=== PATIENT | male | born 1940 | race Caucasian/White ===

== ENCOUNTER 2016-08-26 15:07 | Inpatient (IN) | payer MEDICARE ==
[~2016-08-26] VITALS: Ht 185.4 cm; Wt 116.8 kg
[~2016-08-26 15:07] MED LIST: ALLO100T PO; AMLO5TAB2 PO; ASPI1TAB69 PO; COEN200T PO; FLUT1SPR5 EACH NARE; FURO40TA PO; GLIM1TAB PO; LOSA50TA PO; METF1000 PO; METO100T PO; PANT40TA3 PO; ROSU10 PO; VIAG50TA PO; VITA2000 PO; WARF-21 PO; WARF-23 PO
[2016-08-26 15:11] VITALS: BP 165/74; PULSE 84; RESP 16; TEMP 97.8; O2SAT 98
[2016-08-26 15:43] VITALS: BP 159/87; PULSE 67; RESP 16; O2SAT 97
[2016-08-26] MEDS ORDERED: SODIUM CHLORIDE 0.9% FLUSH 10 ML FLUSH IVF PRN (15:45)
--- NOTE | 2016-08-26 16:19 | RADRPT ---
EXAM DATE/TIME: 08/26/2016 15:55 [facility] COMPARISON: CHEST SINGLE AP, March 04, 2016, 22:41. INDICATIONS : Short of breath. MEDICAL HISTORY : Cardiovascular disease. SURGICAL HISTORY : CABG. ENCOUNTER: Initial ACUITY: 1 day PAIN SCORE: 7/10 LOCATION: Bilateral chest FINDINGS: Median sternotomy wires are noted status post cardiac surgery. The heart is enlarged. Mild pulmonar y vascular congestion is noted bilaterally. CONCLUSION: 1. Mild pulmonary vascular congestion bilaterally. 2. Cardiomegaly. Luis Whyte MD on August 26, 2016 at 16:13 Board Certified Radiologist. This report was verified electronically.
[2016-08-26 16:29] LABS: AUTOMATED NEUTROPHIL # 4.9 TH/MM3 (1.8-7.7); BASOPHIL # 0.1 TH/MM3 (0-0.2); BASOPHIL % 1.1 % (0.0-2.0); EOSINOPHIL # 0.5 TH/MM3 (0-0.4); EOSINOPHIL % 6.2 % (0.0-4.0); HEMATOCRIT 32.5 % (39.0-51.0); HEMO FLAGS AUTO DIFF; LYMPHOCYTE # 1.2 TH/MM3 (1.0-4.8); MEAN CELL VOLUME 78.2 FL (80.0-100.0); MEAN CORPUSCULAR HEMOGLOBIN 24.2 PG (27.0-34.0); MONO % 9.3 % (0.0-8.0); NEUT % 66.4 % (16.0-70.0); PLATELET COUNT 220 TH/MM3 (150-450); RED BLOOD COUNT 4.15 MIL/MM3 (4.50-5.90); RED CELL DISTRIBUTION WIDTH 17.2 % (11.6-17.2); WHITE BLOOD COUNT 7.3 TH/MM3 (4.0-11.0)
[2016-08-26 16:46] LABS: APTT (PATIENT) 36.6 SEC (24.3-30.1); INTERNATIONAL NORMALIZED RATIO 2.2 RATIO; PROTHROMBIN TIME - PATIENT 24.9 SEC (9.8-11.6)
[2016-08-26 16:58] LABS: ANION GAP 8 MEQ/L (5-15); BICARBONATE 26.4 MEQ/L (21.0-32.0); BLOOD UREA NITROGEN 29 MG/DL (7-18); CHLORIDE 105 MEQ/L (98-107); CREATINE KINASE 137 U/L (39-308); GLOMERULAR FILTRATION RATE 47 ML/MIN (>89); MAGNESIUM 1.9 MG/DL (1.5-2.5); POTASSIUM 3.6 MEQ/L (3.5-5.1); SODIUM (NA) 139 MEQ/L (136-145)
[2016-08-26 17:02] LABS: OVALOCYTES 1+ (NORMAL); PLATELET ESTIMATE SMEAR NORMAL (NORMAL); PLATELET MORPHOLOGY NORMAL (NORMAL); SCAN/DIFF AUTO DIFF CONFIRMED
[2016-08-26 17:10] LABS: CKMB 2.2 NG/ML (0.5-3.6)
[2016-08-26] MEDS ORDERED: LOSA100T PO (17:30)
--- NOTE | 2016-08-26 18:04 | PD ---
HPI Chief Complaint: Respiratory Symptoms Time Seen by Provider: 15:41 Travel History International Travel<30 days: Yes Contact w/Intl Traveler<30days: [place] Traveled to: [place] Traveled to known affect area: Yes History of Present Illness HPI 76-year-old male arrives with shortness of breath increasing for the past week or so. He has difficulty sleeping. Orthopnea is reported. He denies chest pain. He reports lower extremity swelling worse on the right for the past 3 days or so. Symptoms first dose while the patient was on a cruise. He reports a chronic cough however has had no fever. He describes some chest heaviness. He reports doubling his Lasix dose yesterday which didn't seem to help. PFSH Past Medical History Hx Anticoagulant Therapy: Yes (warfarin) Atrial Fibrillation: Yes Cancer: Yes (basal cell ca in forehead) Cardiovascular Problems: Yes (triple bypass/afib/chf) High Cholesterol: Yes Congestive Heart Failure: Yes Coronary Artery Disease: Yes Diabetes: Yes Endocrine: No GERD: Yes Gout: Yes Genitourinary: No Hypertension: Yes Immune Disorder: No Musculoskeletal: No Neurologic: No Psychiatric: No Reproductive: No Respiratory: Yes (stuffy nose/ congestion) Past Surgical History Cardiac Surgery: Yes (bypass x3) Coronary Artery Bypass Graft: Yes Social History Alcohol Use: No Tobacco Use: No Substance Use: Yes Allergies-Medications (Allergen,Severity, Reaction): Coded Allergies: No Known Allergies (Unverified , 08/26/16) Reported Meds & Prescriptions Reported Meds & Active Scripts Active Metoprolol Tartrate 100 Mg Tab 100 Mg PO DAILY Reported Losartan (Losartan Potassium) 100 Mg Tab 100 Mg PO DAILY Warfarin 7.5 Mg Tab 7.5 Mg PO MOWEFR Take 1 tablet (7.5mg) at 5pm on Sunday,Sunday and Sunday Vitamin D3 (Cholecalciferol) 2,000 Unit Cap 2,000 Units PO DAILY Coenzyme Q10 (Ubidecarenone) 200 Mg Tab 200 Mg PO DAILY Glimepiride 1 Mg Tab 1 Mg PO BID Take with breakfast or first main meal Furosemide 40 Mg Tab 40 Mg PO DAILY Crestor (Rosuvastatin Calcium) 10 Mg Tab 10 Mg PO HS Pantoprazole (Pantoprazole Sodium) 40 Mg Tab 40 Mg PO DAILY Allopurinol 100 Mg Tab 100 Mg PO BID Aspirin 81 Mg Tabdr 81 Mg PO HS Warfarin 5 Mg Tab 5 Mg PO SUTUTHSA Take 1 tablet (5mg) at 5pm on Sunday,Sunday, and Sunday Metformin (Metformin HCl) 1,000 Mg Tab 1,000 Mg PO BID With meals Review of Systems Except as stated in HPI: all other systems reviewed are Neg General / Constitutional: No: Fever Physical Exam Narrative GENERAL: 76 -year-old male pleasant well-nourished well-developed SKIN: Focused skin assessment warm/dry. HEAD: Atraumatic. Normocephalic. EYES: Pupils equal and round. No scleral icterus. No injection or drainage. ENT: No nasal bleeding or discharge. Mucous membranes pink and moist. NECK: Trachea midline. No JVD. CARDIOVASCULAR: Regular rate and rhythm. No murmur appreciated. RESPIRATORY: Minimal rales to the bases. No tachypnea at rest. GASTROINTESTINAL: Abdomen soft, non-tender, nondistended. Hepatic and splenic margins not palpable. MUSCULOSKELETAL: No obvious deformities. No clubbing. No cyanosis. 2+ pitting edema bilaterally. Slightly more prominent on the right side. NEUROLOGICAL: Awake and alert. No obvious cranial nerve deficits. Motor grossly within normal limits. Normal speech. PSYCHIATRIC: Appropriate mood and affect; insight and judgment normal. Data Data Last Documented VS Vital Signs Date Time Temp Pulse Resp B/P Pulse Ox O2 Delivery O2 Flow Rate FiO2 08/26/16 18:20 74 16 172/61 95 Room Air 08/26/16 15:11 97.8 Vital signs reviewed Orders Complete Blood Count With Diff (08/26/16 15:42) Basic Metabolic Panel (Bmp) (08/26/16 15:42) B-Type Natriuretic Peptide (08/26/16 15:42) Act Partial Throm Time (Ptt) (08/26/16:42) Prothrombin Time / Inr (Pt) (08/26/16:42) Magnesium (Mg) (08/26/16 15:42) Ckmb (Isoenzyme) Profile (08/26/16 15:42) Troponin I (08/26/16 15:42) Iv Access Insert/Monitor (08/26/16 15:42) Electrocardiogram (08/26/16 15:42) Ecg Monitoring (08/26/16 15:42) Oximetry (08/26/16 15:42) Oxygen Administration (08/26/16 15:42) Chest, Single Ap (08/26/16 15:42) Sodium Chloride 0.9% Flush (Ns Flush) (08/26/16 15:45) CKMB (08/26/16 16:00) CKMB% (08/26/16 16:00) Furosemide Inj (Lasix Inj) (08/26/16 18:15) Warfarin (Coumadin) (08/26/16 18:15) Allopurinol (Zyloprim) (08/26/16 18:15) Pantoprazole (Protonix) (08/26/16 18:15) Glimepiride (Amaryl) (08/26/16 18:15) Admit Order (Ed Use Only) (08/26/16 18:40) Labs Laboratory Tests Test 08/26/16 16:00 White Blood Count 7.3 TH/MM3 Red Blood Count 4.15 MIL/MM3 Hemoglobin 10.1 GM/DL Hematocrit 32.5 % Mean Corpuscular Volume 78.2 FL Mean Corpuscular Hemoglobin 24.2 PG Mean Corpuscular Hemoglobin 31.0 % Concent Red Cell Distribution Width 17.2 % Platelet Count 220 TH/MM3 Mean Platelet Volume 8.2 FL Neutrophils (%) (Auto) 66.4 % Lymphocytes (%) (Auto) 17.0 % Monocytes (%) (Auto) 9.3 % Eosinophils (%) (Auto) 6.2 % Basophils (%) (Auto) 1.1 % Neutrophils # (Auto) 4.9 TH/MM3 Lymphocytes # (Auto) 1.2 TH/MM3 Monocytes # (Auto) 0.7 TH/MM3 Eosinophils # (Auto) 0.5 TH/MM3 Basophils # (Auto) 0.1 TH/MM3 CBC Comment AUTO DIFF Differential Comment AUTO DIFF CONFIRMED Platelet Estimate NORMAL Platelet Morphology Comment NORMAL Ovalocytes 1+ Prothrombin Time 24.9 SEC Prothromb Time International 2.2 RATIO Ratio Activated Partial 36.6 SEC Thromboplast Time Sodium Level 139 MEQ/L Potassium Level 3.6 MEQ/L Chloride Level 105 MEQ/L Carbon Dioxide Level 26.4 MEQ/L Anion Gap 8 MEQ/L Blood Urea Nitrogen 29 MG/DL Creatinine 1.45 MG/DL Estimat Glomerular Filtration 47 ML/MIN Rate Random Glucose 105 MG/DL Calcium Level 8.6 MG/DL Magnesium Level 1.9 MG/DL Total Creatine Kinase 137 U/L Creatine Kinase MB 2.2 NG/ML Troponin I LESS THAN 0.02 NG/ML B-Type Natriuretic Peptide 377 PG/ML MDM Medical Decision Making Medical Screen Exam Complete: Yes Emergency Medical Condition: Yes Medical Record Reviewed: Yes Differential Diagnosis CHF exacerbation, renal failure, anemia, electrolyte imbalance Narrative Course CBC & BMP Diagram 08/26/16 16:00 BNP 377 Troponin less than 0.02 EKG reveals a sinus rhythm with a rate of 60 irregular/atrial fibrillation Chest x-ray reveals pulmonary edema vascular congestion bilaterally and cardiomegaly The patient will be admitted for a CHF exacerbation. He has received 60 mg of IV Lasix here. Patient is on warfarin nothing is very unlikely that he has a DVT in the right leg. Case discussed Dr. Johnson. No fever or leukocytosis. PNA considered doubtful. Diagnosis Primary Impression: CHF (congestive heart failure) Qualified Code: I50.9 - Congestive heart failure, unspecified congestive heart failure chronicity, unspecified congestive heart failure type Additional Impression: A-fib Qualified Code: I48.91 - Atrial fibrillation, unspecified type Admitting Information Admitting Physician Requests: Observation Tavares Loo MD August 26, 2016 18:04
[2016-08-26] MEDS ORDERED: GLIMEPIRIDE 1 MG TAB PO ONE (18:15)
[2016-08-26] MEDS ORDERED: FUROSEMIDE 20 MG/2 ML VIAL IV PUSH ONE (18:15)
[2016-08-26] MEDS ORDERED: WARFARIN SOD 5 MG TAB PO ONE (18:15)
[2016-08-26] MEDS ORDERED: PANTOPRAZOLE SOD 40 MG DELAYED RELEASE TAB PO ONE (18:15)
[2016-08-26] MEDS ORDERED: ALLOPURINOL 100 MG TAB PO ONE (18:15)
[2016-08-26 18:20] VITALS: BP 172/61; PULSE 74; RESP 16; O2SAT 95
[2016-08-26] MEDS ORDERED: ONDANSETRON HCL 4 MG/2 ML VIAL IVP PRN (19:00)
[2016-08-26] MEDS ORDERED: MORPHINE SULFATE 4 MG/ML INJ IV PRN (19:00)
[2016-08-26] MEDS ORDERED: DEXTROSE 50% IN WATER 50 ML VIAL(D50) IV PUSH PRN (19:00)
[2016-08-26] MEDS ORDERED: SODIUM CHLORIDE 0.9% FLUSH 10 ML FLUSH IV FLUSH PRN (19:00)
[2016-08-26] MEDS ORDERED: BISACODYL 10 MG SUPP RECTAL PRN (19:00)
[2016-08-26] MEDS ORDERED: GLUCAGON 1 MG/ML VIAL OTHER PRN (19:00)
[2016-08-26] MEDS ORDERED: oxyCODONE/ACETAMINOPHEN 5 MG/325 MG TAB PO PRN (19:00)
[2016-08-26] MEDS ORDERED: ACETAMINOPHEN 325 MG TAB PO PRN (19:00)
--- NOTE | 2016-08-26 19:05 | HHI.HP ---
HPI [facility] Primary Care Physician Non-Staff Admission Diagnosis CHF Exacerbation Diagnoses: (1) CHF (congestive heart failure) Diagnosis: Principal (2) A-fib Diagnosis: Principal (3) HTN (hypertension) Diagnosis: Principal (4) Renal insufficiency Diagnosis: Principal (5) DM (diabetes mellitus) Diagnosis: Principal Travel History International Travel<30 Days: Yes Contact w/Intl Traveler <30 Da: [place] Traveled to: [place] Traveled to Known Affected Are: Yes History of Present Illness This 76-year-old male with a PMH of HTN, A. fib on Coumadin, CAD, CHF (Echo w/ EF 55-60%), Basal Cell CA and Gout who presented to the ER with complaints of SOB and progressive lower extremity edema x3 days. Denies fever, chills, chest pain or cough. On arrival, BP 165/74, HR 84, O2 sat 98% on RA, Afebrile. CBC essentially at baseline. Creatinine 1.45, previously 1.75 on . Troponin negative. BNP 377. INR therapeutic at 2.2. CXR with mild pulmonary vascular congestion bilaterally. S/p Lasix 60mg IV x1 in ER w/ good diuresis. Review of Systems Except as stated in HPI: all other systems reviewed are Neg ROS: 14 point review of systems otherwise negative. Past Family Social History Past Medical History PMH: HTN, A. fib on Coumadin, CAD, CHF (Echo 03/08/16 w/ EF 55-60%), Basal Cell CA and Gout Past Surgical History PAST SURGICAL HISTORY: CABG Allergies: Coded Allergies: No Known Allergies (Unverified , 08/26/16) Family History PAST FAMILY HISTORY: Reviewed. No h/o DM or CAD Social History PAST SOCIAL HISTORY: Negative for alcohol, tobacco or drugs. Physical Exam Vital Signs Vital Signs Date Time Temp Pulse Resp B/P Pulse Ox O2 Delivery O2 Flow Rate FiO2 08/26/16 18:20 74 16 172/61 95 Room Air 08/26/16 15:43 67 16 159/87 97 Room Air 08/26/16 15:43 97 Room Air 08/26/16 15:37 98 Room Air 08/26/16 15:11 97.8 84 16 165/74 98 Physical Exam PE: GENERAL: Pleasant elderly male in no acute distress. HEENT: PERRLA, EOMI. No scleral icterus or conjunctival pallor. No lid lag or facial droop. CARDIOVASCULAR: Regular rate and rhythm. No obvious murmurs to auscultation. No chest tenderness to palpation. RESPIRATORY: No obvious rhonchi or wheezing. Clear to auscultation. Breath sounds equal bilaterally. GASTROINTESTINAL: Abdomen soft, non-tender, nondistended. BS normal. MUSCULOSKELETAL: Extremities without clubbing, cyanosis. +2 edema bilaterally. No obvious deformities. NEUROLOGICAL: Awake, alert and oriented x4. No focal neurologic deficits. Moving both upper and lower extremities spontaneously. Laboratory Laboratory Tests Test 08/26/16 16:00 White Blood Count 7.3 Red Blood Count 4.15 Hemoglobin 10.1 Hematocrit 32.5 Mean Corpuscular Volume 78.2 Mean Corpuscular Hemoglobin 24.2 Mean Corpuscular Hemoglobin 31.0 Concent Red Cell Distribution Width 17.2 Platelet Count 220 Mean Platelet Volume 8.2 Neutrophils (%) (Auto) 66.4 Lymphocytes (%) (Auto) 17.0 Monocytes (%) (Auto) 9.3 Eosinophils (%) (Auto) 6.2 Basophils (%) (Auto) 1.1 Neutrophils # (Auto) 4.9 Lymphocytes # (Auto) 1.2 Monocytes # (Auto) 0.7 Eosinophils # (Auto) 0.5 Basophils # (Auto) 0.1 CBC Comment AUTO DIFF Differential Comment AUTO DIFF CONFIRMED Platelet Estimate NORMAL Platelet Morphology Comment NORMAL Ovalocytes 1+ Prothrombin Time 24.9 Prothromb Time International 2.2 Ratio Activated Partial 36.6 Thromboplast Time Sodium Level 139 Potassium Level 3.6 Chloride Level 105 Carbon Dioxide Level 26.4 Anion Gap 8 Blood Urea Nitrogen 29 Creatinine 1.45 Estimat Glomerular Filtration 47 Rate Random Glucose 105 Calcium Level 8.6 Magnesium Level 1.9 Total Creatine Kinase 137 Creatine Kinase MB 2.2 Troponin I LESS THAN 0.02 B-Type Natriuretic Peptide 377 Result Diagram: 08/26/16 1600 08/26/16 1600 Assessment and Plan Problem List: (1) CHF (congestive heart failure) ICD Code: I50.9 Status: Acute (2) HTN (hypertension) ICD Code: I10 Status: Acute (3) A-fib ICD Code: I48.91 Status: Acute (4) Renal insufficiency ICD Code: N28.9 Status: Acute (5) DM (diabetes mellitus) ICD Code: E11.9 Status: Acute Assessment and Plan A/P: 1. CHF: Acute on Chronic. Diastolic. Echo 03/08/16 w/ EF 55-60%. BNP 377, CXR w/ bilateral pulmonary vascular congestion, images reviewed by me, 2+ edema on exam, s/p Lasix 60mg IV x1 in ER. Monitor I/O. Lasix 20mg IV bid. 2. HTN: Uncontrolled. BP 160-190's. Resume home medications, monitor BP, adjust meds as needed. 3. Renal Insufficiency: Chronic. Creatinine 1.45, previously 1.75 on . Caution w/ diuresis, repeat labs in am. 4. DM: Sliding scale w/ Accu-Cheks. Hold Metformin for now for possible cardiac intervention if needed. Resume Glimepiride. 5. A-fib: Chronic. On Coumadin. INR therapeutic at 2.2. Will resume. 6. DVT Prophylaxis: On Coumadin as above. 7. Social work for d/c planning as needed. 8. Case discussed w/ ER physician at length. Problem Qualifiers (1) CHF (congestive heart failure): Qualified Code: I50.9 - Congestive heart failure, unspecified congestive heart failure chronicity, unspecified congestive heart failure type (2) A-fib: Qualified Code: I48.91 - Atrial fibrillation, unspecified type Sommer Gonzalez MD August 26, 2016 19:05
[2016-08-26 20:00] VITALS: BP 193/88; PULSE 72; RESP 20; TEMP 98.5; O2SAT 97
[2016-08-26] MEDS: INSULIN ASPART SUPPLEMENTAL SCALE SQ SCH (20:28)
[2016-08-26] MEDS: ALLOPURINOL 100 MG TAB PO SCH (20:47)
[2016-08-26] MEDS: GLIMEPIRIDE 1 MG TAB PO SCH (20:47)
[2016-08-26] MEDS: ASPIRIN EC 81 MG TABEC PO SCH (20:47)
[2016-08-26] MEDS: WARFARIN SOD 5 MG TAB PO SCH (20:47)
[2016-08-26] MEDS: ATORVASTATIN 20 MG TAB PO SCH (20:48)
[2016-08-26] MEDS: SODIUM CHLORIDE 0.9% FLUSH 10 ML FLUSH IV FLUSH SCH (20:49)
[2016-08-26 22:35] VITALS: PULSE 77
[2016-08-27] VITALS (7 sets, daily range): BP systolic 131–163; BP diastolic 66–82; PULSE 62–89; RESP 17–20; TEMP 96.1–98.8; O2SAT 91–100
[2016-08-27 05:13] LABS: AUTOMATED NEUTROPHIL # 5.5 TH/MM3 (1.8-7.7); BASOPHIL # 0.1 TH/MM3 (0-0.2); BASOPHIL % 0.8 % (0.0-2.0); EOSINOPHIL # 0.5 TH/MM3 (0-0.4); EOSINOPHIL % 5.9 % (0.0-4.0); HEMATOCRIT 30.3 % (39.0-51.0); LYMPH % 12.4 % (9.0-44.0); MEAN CELL VOLUME 77.7 FL (80.0-100.0); MEAN CORPUSCULAR HEMOGLOBIN 24.2 PG (27.0-34.0); MEAN CORPUSCULAR HGB CONC 31.2 % (32.0-36.0); MONO % 10.3 % (0.0-8.0); NEUT % 70.6 % (16.0-70.0); PLATELET COUNT 197 TH/MM3 (150-450); RED CELL DISTRIBUTION WIDTH 17.1 % (11.6-17.2); WHITE BLOOD COUNT 7.8 TH/MM3 (4.0-11.0)
[2016-08-27 05:25] LABS: INTERNATIONAL NORMALIZED RATIO 2.3 RATIO
[2016-08-27 05:32] LABS: HEMO FLAGS AUTO DIFF
[2016-08-27 05:40] LABS: ALKALINE PHOSPHATASE 63 U/L (45-117); ALT (GPT) 21 U/L (12-78); ANION GAP 11 MEQ/L (5-15); AST (GOT) 27 U/L (15-37); BICARBONATE 26.4 MEQ/L (21.0-32.0); BLOOD UREA NITROGEN 25 MG/DL (7-18); CHLORIDE 103 MEQ/L (98-107); GLOMERULAR FILTRATION RATE 50 ML/MIN (>89); POTASSIUM 3.3 MEQ/L (3.5-5.1); SODIUM (NA) 140 MEQ/L (136-145); TOTAL BILIRUBIN ADULT 1.1 MG/DL (0.2-1.0)
[2016-08-27] MEDS: INSULIN ASPART SUPPLEMENTAL SCALE SQ SCH ×4 (06:16→21:00)
[2016-08-27 07:52] LABS: BANDS 1 % (0-6); BASOPHILS 1 % (0-2); EOSINOPHILS 2 % (0-4); NEUTROPHIL # MANUAL DIFF 6.2 TH/MM3 (1.8-7.7); PLATELET ESTIMATE SMEAR NORMAL (NORMAL); PLATELET MORPHOLOGY NORMAL (NORMAL); POLYS (SEG NEUTROPHILS) 78 % (16-70); SCAN/DIFF FINAL DIFF MANUAL; WBC DIFF SAMPLE 100
[2016-08-27] MEDS: METOPROLOL TARTRATE 100 MG TAB PO SCH (10:01)
[2016-08-27] MEDS: PANTOPRAZOLE SOD 40 MG DELAYED RELEASE TAB PO SCH (10:02)
[2016-08-27] MEDS: WARFARIN SOD 5 MG TAB PO SCH (10:02)
[2016-08-27] MEDS: LOSARTAN 50 MG TAB PO SCH (10:02)
[2016-08-27] MEDS: GLIMEPIRIDE 1 MG TAB PO SCH ×2 (10:02→21:06)
[2016-08-27] MEDS: ALLOPURINOL 100 MG TAB PO SCH ×2 (10:02→21:06)
[2016-08-27] MEDS: FUROSEMIDE 20 MG/2 ML VIAL IV PUSH SCH ×2 (10:03→17:39)
[2016-08-27] MEDS: SODIUM CHLORIDE 0.9% FLUSH 10 ML FLUSH IV FLUSH SCH ×2 (10:04→21:06)
[2016-08-27] MEDS ORDERED: POTASSIUM CHLORIDE 20 MEQ CONTROLLED RELEASE TAB PO ONE (14:00)
--- NOTE | 2016-08-27 14:21 | HHI.PR ---
Subjective Remarks Follow up shortness of breath and bilateral lower extremity edema. Patient seen and examined. States that he feels much better, denies any further shortness of breath. On room air. Denies any new acute complaints. States that bilateral lower extremity edema improving, less erythema. Denies any recent fever, chills , cough, chest pain, nausea or vomiting. Objective Vitals Vital Signs Date Time Temp Pulse Resp B/P Pulse Ox O2 Delivery O2 Flow Rate FiO2 08/27/16 11:58 98.8 62 18 132/74 94 08/27/16 10:55 64 08/27/16 07:52 97.9 88 18 146/82 91 08/27/16 04:06 96.5 89 20 145/76 94 08/27/16 00:02 96.4 79 20 144/67 94 08/26/16 22:35 77 08/26/16 20:00 98.5 72 20 193/88 97 08/26/16 18:20 74 16 172/61 95 Room Air 08/26/16 15:43 67 16 159/87 97 Room Air 08/26/16 15:43 97 Room Air 08/26/16 15:37 98 Room Air 08/26/16 15:11 97.8 84 16 165/74 98 I/O 08/26/16 08/26/16 08/26/16 08/27/16 08/27/16 08/27/16 07:00 15:00 23:00 07:00 15:00 23:00 Intake Total 240 ml Output Total 450 ml Balance -450 ml 240 ml Intake Oral 240 ml Output Urine Total 450 ml # Voids 1 5 Result Diagram: 08/27/16 0340 08/27/16 0340 Imaging Last Impressions Chest X-Ray 08/26/16 1542 Signed Impressions: Service Date/Time: Friday, August 26, 2016 15:55 - CONCLUSION: 1. Mild pulmonary vascular congestion bilaterally. 2. Cardiomegaly. Luis Whyte MD Objective Remarks GENERAL: Well-nourished, well-developed patient in NAD sitting on side of bed. SKIN: Warm and dry. No rash. HEENT: Normocephalic. Atraumatic. Pupils equal and round. No scleral icterus. No injection or drainage. No nasal bleeding or discharge. Mucous membranes pink and moist. NECK: Supple. Trachea midline. CARDIOVASCULAR: Atrial fibrillation, controlled. No murmur appreciated. RESPIRATORY: No accessory muscle use. Clear to auscultation. Breath sounds equal bilaterally. GASTROINTESTINAL: Abdomen soft, non-tender, nondistended. Normoactive bowel sounds x4. MUSCULOSKELETAL: No obvious deformities. Extremities without clubbing or cyanosis. Bilateral 1+ lower extremity edema noted. NEUROLOGICAL: Awake and alert. No obvious cranial nerve deficits. Motor grossly within normal limits. 5/5 muscle strength in bilateral upper and lower extremities. Normal speech. PSYCHIATRIC: Appropriate mood and affect; insight and judgment normal. Urinary Catheter: No Vascular Central Line Catheter: No A/P Problem List: (1) CHF (congestive heart failure) ICD Code: I50.9 Status: Acute (2) HTN (hypertension) ICD Code: I10 Status: Acute (3) A-fib ICD Code: I48.91 Status: Acute (4) Renal insufficiency ICD Code: N28.9 Status: Acute (5) DM (diabetes mellitus) ICD Code: E11.9 Status: Acute Assessment and Plan Mr. Foley is a 76-year-old male with a known medical history of congestive heart failure, hypertension, atrial fibrillation on Coumadin, CAD status post triple bypass, and gout who presented to the ED with dyspnea x 3 days with worsening bilateral lower extremity edema and erythema. Patient states he has been compliant with his daily medications. He does admit to taking an extra dose of Lasix a few days ago when he noticed an increase in leg swelling and 2- 3 pound weight gain. Acute on chronic diastolic congestive heart failure - Echocardiogram from 03/08/16 reviewed, ejection fraction 55-60%. Systolic function normal. Mild to moderate regurgitation. - Chest x-ray reviewed, cardiomegaly with vascular congestion with small bilateral effusions. - Serial troponin checked, negative. - Status post Lasix 60 mg IV x 1 given in ED. - Strict intake and output monitoring. - Check daily weights. - Limit sodium intake. - Continue Lasix 20 mg PO BID. Hypertension: More controlled today on home medications. Continue Losartan 100 mg PO daily and Metoprolol 100 mg PO daily. Hypokalemia: Potassium 3.3 today 08/27. Give KCL 40 meq PO x 1 now. Recheck BMP. Chronic kidney disease: Creatinine 1.45 on presentation, today 08/27 1.38. Previously 1.75 on 04/01/16. Diabetes mellitus: Blood sugars controlled. Continue ACCU checks, sliding scale insulin, cover as needed. Hold Metformin at this time, improving creatinine. Continue Glimepiride. Atrial fibrillation, chronic - EKG reviewed, atrial fibrillation noted. - Continue Coumadin. INR therapeutic, 2.3. Monitor. DVT Prophylaxis: SCDs/TEDs. Coumadin. Problem Qualifiers (1) CHF (congestive heart failure): Qualified Code: I50.9 - Congestive heart failure, unspecified congestive heart failure chronicity, unspecified congestive heart failure type (2) A-fib: Qualified Code: I48.91 - Atrial fibrillation, unspecified type Velia Castro August 27, 2016 14:21
--- NOTE | 2016-08-27 15:15 | EKG ---
Date Performed: 08/26/2016 Time Performed: 18:41:07 PTAGE: 76 years EKG: ATRIAL FIBRILLATION MODERATE ST DEPRESSION Since previous tracing, no significant change no sigrid ABNORMAL ECG PREVIOUS TRACING : 08/26/2016 15.53 DOCTOR: Lili Mandel Interpretating Date/Time 08/27/2016 15:13:56
--- NOTE | 2016-08-27 15:46 | EKG ---
Date Performed: 08/26/2016 Time Performed: 15:53:01 PTAGE: 76 years EKG: Atrial fibrillation with a controlled ventricular response. Premature ventricular contracti ons verses abberrancy. MODERATE ST DEPRESSION When compared to previous tracing, there has been a sig nificant Slowing of the ventricular response to the atrial fibrillation, but Otherwise no significant serial change. ABNORMAL ECG PREVIOUS TRACING : 03/05/2016 06.20 DOCTOR: Lili Mandel Interpretating Date/Time 08/27/2016 15:44:54
--- NOTE | 2016-08-27 17:50 | HHI.DCPOC ---
Discharge Care Plan Diagnosis: (1) CHF (congestive heart failure) (2) Renal insufficiency (3) A-fib (4) HTN (hypertension) (5) DM (diabetes mellitus) Goals to Promote Your Health * To prevent worsening of your condition and complications * To maintain your health at the optimal level Directions to Meet Your Goals Take your medications as prescribed Follow your dietary instruction Follow activity as directed Keep your appointments as scheduled Take your immunizations and boosters as scheduled If your symptoms worsen call your PCP, if no PCP go to Urgent Care Center or Emergency Room Smoking is Dangerous to Your Health. Avoid second hand smoke Call the 24-hour hour crisis hotline for domestic abuse at Michelle Richardson PA-C August 27, 2016 5:50 pm
[2016-08-27] MEDS: ATORVASTATIN 20 MG TAB PO SCH (21:05)
[2016-08-27] MEDS: ASPIRIN EC 81 MG TABEC PO SCH (21:06)
[2016-08-28 00:32] VITALS: BP 148/85; PULSE 64; RESP 17; TEMP 97.5; O2SAT 98
[2016-08-28 04:21] VITALS: BP 153/81; PULSE 68; RESP 17; TEMP 97.7; O2SAT 96
[2016-08-28 05:11] LABS: AUTOMATED NEUTROPHIL # 4.9 TH/MM3 (1.8-7.7); BASOPHIL % 0.6 % (0.0-2.0); EOSINOPHIL # 0.5 TH/MM3 (0-0.4); HEMATOCRIT 29.9 % (39.0-51.0); LYMPH % 14.7 % (9.0-44.0); LYMPHOCYTE # 1.1 TH/MM3 (1.0-4.8); MEAN CELL VOLUME 76.8 FL (80.0-100.0); MEAN CORPUSCULAR HEMOGLOBIN 24.7 PG (27.0-34.0); MEAN CORPUSCULAR HGB CONC 32.1 % (32.0-36.0); MONO % 9.5 % (0.0-8.0); NEUT % 68.2 % (16.0-70.0); PLATELET COUNT 216 TH/MM3 (150-450); RED CELL DISTRIBUTION WIDTH 17.5 % (11.6-17.2); WHITE BLOOD COUNT 7.2 TH/MM3 (4.0-11.0)
[2016-08-28 05:19] LABS: HEMO FLAGS AUTO DIFF
[2016-08-28 05:32] LABS: BICARBONATE 26.3 MEQ/L (21.0-32.0); MAGNESIUM 2.1 MG/DL (1.5-2.5); POTASSIUM 3.7 MEQ/L (3.5-5.1)
[2016-08-28] MEDS: INSULIN ASPART SUPPLEMENTAL SCALE SQ SCH (07:00)
[2016-08-28 07:05] LABS: OVALOCYTES 1+ (NORMAL); SCAN/DIFF AUTO DIFF CONFIRMED
[2016-08-28 08:00] VITALS: BP 172/85; PULSE 91; RESP 18; TEMP 95.4; O2SAT 96
[2016-08-28] MEDS: SODIUM CHLORIDE 0.9% FLUSH 10 ML FLUSH IV FLUSH SCH (09:00)
[2016-08-28] MEDS: METOPROLOL TARTRATE 100 MG TAB PO SCH (09:15)
[2016-08-28] MEDS: PANTOPRAZOLE SOD 40 MG DELAYED RELEASE TAB PO SCH (09:15)
[2016-08-28] MEDS: LOSARTAN 50 MG TAB PO SCH (09:15)
[2016-08-28] MEDS: FUROSEMIDE 20 MG/2 ML VIAL IV PUSH SCH (09:15)
[2016-08-28] MEDS: GLIMEPIRIDE 1 MG TAB PO SCH (09:15)
[2016-08-28] MEDS: ALLOPURINOL 100 MG TAB PO SCH (09:15)
[2016-08-28] MEDS ORDERED: NIFEdipine 30 MG SUSTAINED RELEASE TAB PO SCH (10:15)
[2016-08-28] MEDS ORDERED: NIFE30TA61 PO (10:26)
[2016-08-28] MEDS ORDERED: METO100T9 PO (10:26)
[2016-08-28] MEDS ORDERED: FURO40TA PO (10:26)
[2016-08-28 12:00] VITALS: BP 133/78; PULSE 64; RESP 18; TEMP 96.5; O2SAT 97
[2016-08-28] MEDS ORDERED: WARFARIN SOD 7.5 MG TAB PO SCH (19:00)
[2016-08-29] MEDS ORDERED: METOPROLOL SUCCINATE 50 MG EXTENDED RELEASE TAB PO SCH (09:00)
--- NOTE | 2016-08-31 08:42 | HHI.DS ---
Discharge Summary Admission Date August 27, 2016 at 10:38 Discharge Date: August 28, 2016 Admitting Diagnosis CHF Exacerbation (1) CHF (congestive heart failure) ICD Code: I50.9 (2) HTN (hypertension) ICD Code: I10 (3) A-fib ICD Code: I48.91 (4) Renal insufficiency ICD Code: N28.9 (5) DM (diabetes mellitus) ICD Code: E11.9 Procedures no invasive procedures Brief History - From Admission This 76-year-old male with a PMH of HTN, A. fib on Coumadin, CAD, CHF (Echo w/ EF 55-60%), Basal Cell CA and Gout who presented to the ER with complaints of SOB and progressive lower extremity edema x3 days. Denies fever, chills, chest pain or cough. On arrival, BP 165/74, HR 84, O2 sat 98% on RA, Afebrile. CBC essentially at baseline. Creatinine 1.45, previously 1.75 on . Troponin negative. BNP 377. INR therapeutic at 2.2. CXR with mild pulmonary vascular congestion bilaterally. S/p Lasix 60mg IV x1 in ER w/ good diuresis. CBC/BMP: 08/28/16 0428 08/28/16 0428 Imaging Last Impressions Chest X-Ray 08/26/16 1542 Signed Impressions: Service Date/Time: Friday, August 26, 2016 15:55 - CONCLUSION: 1. Mild pulmonary vascular congestion bilaterally. 2. Cardiomegaly. Luis Whyte MD PE at Discharge GENERAL: Well-nourished, well-developed patient in NAD sitting on side of bed. SKIN: Warm and dry. No rash. HEENT: Normocephalic. Atraumatic. Pupils equal and round. No scleral icterus. No injection or drainage. No nasal bleeding or discharge. Mucous membranes pink and moist. NECK: Supple. Trachea midline. CARDIOVASCULAR: Atrial fibrillation, controlled. No murmur appreciated. RESPIRATORY: No accessory muscle use. Clear to auscultation. Breath sounds equal bilaterally. GASTROINTESTINAL: Abdomen soft, non-tender, nondistended. Normoactive bowel sounds x4. MUSCULOSKELETAL: No obvious deformities. Extremities without clubbing or cyanosis. Bilateral 1+ lower extremity edema noted. NEUROLOGICAL: Awake and alert. No obvious cranial nerve deficits. Motor grossly within normal limits. 5/5 muscle strength in bilateral upper and lower extremities. Normal speech. PSYCHIATRIC: Appropriate mood and affect; insight and judgment normal. Pt update on day of discharge patient feels well. Would like to go home. Hospital Course Patient with mild pulmonary vascular congestion, systolic blood pressures up to the 190s. gentle diuresis, as well as Blood pressure controlled with the addition of blood pressure medications. Patient felt much improved, and was discharged home. We'll need to follow-up with cardiology as outpatient. For problem-based summary from most recent progress note, please see below. Mr. Foley is a 76-year-old male with a known medical history of congestive heart failure, hypertension, atrial fibrillation on Coumadin, CAD status post triple bypass, and gout who presented to the ED with dyspnea x 3 days with worsening bilateral lower extremity edema and erythema. Patient states he has been compliant with his daily medications. He does admit to taking an extra dose of Lasix a few days ago when he noticed an increase in leg swelling and 2- 3 pound weight gain. Acute on chronic diastolic congestive heart failure - Echocardiogram from 03/08/16 reviewed, ejection fraction 55-60%. Systolic function normal. Mild to moderate regurgitation. - Chest x-ray reviewed, cardiomegaly with vascular congestion with small bilateral effusions. - Serial troponin checked, negative. - Status post Lasix 60 mg IV x 1 given in ED. - Strict intake and output monitoring. - Check daily weights. - Limit sodium intake. - Continue Lasix 20 mg PO BID. Hypertension: More controlled today on home medications. Continue Losartan 100 mg PO daily and Metoprolol 100 mg PO daily. Hypokalemia: Potassium 3.3 today 08/27. Give KCL 40 meq PO x 1 now. Recheck BMP. Chronic kidney disease: Creatinine 1.45 on presentation, today 08/27 1.38. Previously 1.75 on 04/01/16. Diabetes mellitus: Blood sugars controlled. Continue ACCU checks, sliding scale insulin, cover as needed. Hold Metformin at this time, improving creatinine. Continue Glimepiride. Atrial fibrillation, chronic - EKG reviewed, atrial fibrillation noted. - Continue Coumadin. INR therapeutic, 2.3. Monitor. DVT Prophylaxis: SCDs/TEDs. Coumadin. Pt Condition on Discharge: Good Discharge Disposition: Discharge Home Discharge Time: <= 30 minutes Discharge Instructions DIET: Follow Instructions for: Diabetic Diet, Low Sodium Diet Fluid Restrictions: 2 Liters Activities you can perform: Regular-No Restrictions Other Activity Instructions: Check weight daily. call PCP if weight up by more than 3 pounds in two days or more than 4 pounds in a week. Follow up Referrals: Cardiology - 1 Week with Mary Jane Arteaga MD PCP Follow-up - 1 Week New Medications: Metoprolol Succinate ER 24 HR (Metoprolol Succinate ER 24 HR) 100 Mg Tab 100 MG PO DAILY heart #30 Ref 0 TAB Nifedipine ER 24 HR (Nifedipine ER 24 HR) 30 Mg Tab 30 MG PO DAILY heart #30 Ref 0 TAB Continued Medications: Allopurinol (Allopurinol) 100 Mg Tab 100 MG PO BID Gout #30 Ref 0 TAB Aspirin (Aspirin) 81 Mg Tabdr 81 MG PO HS TAB Cholecalciferol (Vitamin D3) 2,000 Unit Cap 2000 UNITS PO DAILY Nutritional Supplement #1 Ref 0 BOTTLE Coenzyme Q10 (Ubidecarenone) (Coenzyme Q10 (Ubidecarenone)) 200 Mg Tab 200 MG PO DAILY #1 BOTTLE Furosemide (Furosemide) 40 Mg Tab 40 MG PO DAILY fluid overload #30 Ref 0 TAB (This prescription has been renewed) Glimepiride (Glimepiride) 1 Mg Tab 1 MG PO BID Take with breakfast or first main meal Blood Sugar Management #30 Ref 0 TAB Losartan (Losartan) 100 Mg Tab 100 MG PO DAILY Blood Pressure Management #30 Ref 0 TAB Pantoprazole (Pantoprazole) 40 Mg Tab 40 MG PO DAILY Reflux #30 Ref 0 TAB Rosuvastatin (Crestor) 10 Mg Tab 10 MG PO HS Cholesterol Management #30 Ref 0 TAB Warfarin (Warfarin) 5 Mg Tab 5 MG PO SUTUTHSA Take 1 tablet (5mg) at 5pm on Sunday,Sunday, and Sunday Blood Clot Prevention #30 Ref 0 TAB Warfarin (Warfarin) 7.5 Mg Tab 7.5 MG PO MOWEFR Take 1 tablet (7.5mg) at 5pm on Sunday,Sunday and Sunday Blood Clot Prevention #30 Ref 0 TAB Discontinued Medications: Metformin (Metformin) 1,000 Mg Tab 1000 MG PO BID With meals Blood Sugar Management #60 Ref 0 TAB Metoprolol Tartrate (Metoprolol Tartrate) 100 Mg Tab 100 MG PO DAILY #30 Ref 0 TAB Drake Long MD August 31, 2016 08:41
== END 2016-08-28 14:51 | disposition home or self-care (01) | DRG 293 ==
LOC: NEPC 15:07 → INTOOBSV 18:41 → NEDA 18:41 → NEPFCDU 19:44 → OBSVTOIN 08-27 10:38 → N06B 08-27 14:56
PROVIDERS: ADMIT Internal Medicine; ATTEND Internal Medicine
DX: I50.33 Acute on chronic diastolic (congestive) heart failure (principal); E11.22 Type 2 diabetes mellitus with diabetic chronic kidney disease; I48.2 Chronic atrial fibrillation; Z95.1 Presence of aortocoronary bypass graft; I12.9 Hypertensive chronic kidney disease with stage 1 through stage 4 chronic kidney disease, or unspecified chronic kidney disease; Z79.01 Long term (current) use of anticoagulants; N18.9 Chronic kidney disease, unspecified; I25.10 Atherosclerotic heart disease of native coronary artery without angina pectoris; Z85.828 Personal history of other malignant neoplasm of skin; G47.9 Sleep disorder, unspecified; E78.00 Pure hypercholesterolemia, unspecified; K21.9 Gastro-esophageal reflux disease without esophagitis; M10.9 Gout, unspecified; E87.6 Hypokalemia
CPT/HCPCS: 71010; 80048; 80053; 80069; 82550; 82552; 82948; 83735; 83880; 84484; 85007; 85025; 85027; 85610; 85730; 93005; 96374; G0378; J1940

== ENCOUNTER 2016-10-01 13:36 | Emergency (ER) | payer MEDICARE ==
[~2016-10-01] VITALS: Ht 185.4 cm; Wt 88.0 kg
[~2016-10-01 13:36] MED LIST changes: -AMLO5TAB2 PO; -FLUT1SPR5 EACH NARE; +LOSA100T PO; -LOSA50TA PO; -METF1000 PO; -METO100T PO; +METO100T9 PO; +NIFE30TA61 PO; -VIAG50TA PO
[2016-10-01 13:37] VITALS: BP 138/68; PULSE 63; RESP 24; TEMP 97.4; O2SAT 98
--- NOTE | 2016-10-01 13:43 | PD ---
Physical Exam Date Seen by Provider: Oct 01, 2016 Time Seen by Provider: 13:40 Data Data Last Documented VS Vital Signs Date Time Temp Pulse Resp B/P Pulse Ox O2 Delivery O2 Flow Rate FiO2 10/01/16 13:37 97.4 63 24 138/68 98 Room Air MDM Supervised Visit with KOFFI: No Narrative Course 76 YO M with complaint of swelling in the legs and SOB x "weeks". States 10 lb weight gain in 2 weeks. History of CHF. ON COUMADIN. Followed by Dr. Arteaga. Vitals reviewed. Seen in triage, awaiting bed placement. Chioma Kent Oct 01, 2016 13:43
--- NOTE | 2016-10-01 13:48 | PD ---
HPI Chief Complaint: Edema Time Seen by Provider: 13:48 Travel History International Travel<30 days: No Contact w/Intl Traveler<30days: No Traveled to known affect area: No History of Present Illness HPI 76-year-old male came to the emergency room with history of bilateral leg swelling left worse than right. His is here with him who is giving additional history. Apparently this has been going on for past 2 weeks. Patient has history of cellulitis in the past and his infectious disease doctor started him on Keflex which she has been taking. However the swelling has been progressively worsening. Patient is also on diuretics since he has history of congestive heart failure. He has some shortness of breath but that is a baseline and has not worsened as per him. He has history of atrial fibrillation and his vital signs were within acceptable limits. No history of chest pain. No history of fever or chills. PFSH Past Medical History Narrative Medical List of his past medical, surgical, social and family history was reviewed from the nursing note. Hx Anticoagulant Therapy: Yes Asthma: No Atrial Fibrillation: Yes Blood Disorders: No Heart Rhythm Problems: Yes Cancer: Yes (SKIN ) Cardiovascular Problems: Yes (CHF) High Cholesterol: Yes Chest Pain: No Congestive Heart Failure: Yes COPD: No Coronary Artery Disease: Yes Diabetes: Yes Endocrine: Yes GERD: Yes Gout: Yes Genitourinary: No Hypertension: Yes Immune Disorder: No Musculoskeletal: No Neurologic: No Psychiatric: No Reproductive: No Respiratory: No Sleep Apnea: No Thyroid Disease: No Past Surgical History Body Medical Devices: STENTS Cardiac Surgery: Yes (bypass x3) Coronary Artery Bypass Graft: Yes Social History Alcohol Use: No Tobacco Use: No Substance Use: No Allergies-Medications (Allergen,Severity, Reaction): Coded Allergies: No Known Allergies (Unverified , 10/01/16) Comments No known drug allergies. Reported Meds & Prescriptions Reported Meds & Active Scripts Active Nifedipine ER 24 HR (Nifedipine) 30 Mg Tab 30 Mg PO DAILY Metoprolol Succinate ER 24 HR (Metoprolol Succinate) 100 Mg Tab 100 Mg PO DAILY Furosemide 40 Mg Tab 40 Mg PO DAILY Reported Cefuroxime (Cefuroxime Axetil) 500 Mg Tab 500 Mg PO DAILY Aspirin 81 (Aspirin) 81 Mg Tabdr 81 Mg PO DAILY Montelukast (Montelukast Sodium) 10 Mg Tab 10 Mg PO DAILY Coq-10 (Coenzyme Q10 (Ubidecarenone)) 400 Mg Cap 200 Mg PO DAILY Losartan (Losartan Potassium) 100 Mg Tab 100 Mg PO DAILY Vitamin D3 (Cholecalciferol) 2,000 Unit Cap 2,000 Units PO DAILY Glimepiride 1 Mg Tab 1 Mg PO BID Take with breakfast or first main meal Crestor (Rosuvastatin Calcium) 10 Mg Tab 10 Mg PO HS Pantoprazole (Pantoprazole Sodium) 40 Mg Tab 40 Mg PO DAILY Allopurinol 100 Mg Tab 100 Mg PO BID Warfarin 5 Mg Tab 5 Mg PO SUTUTHSA Take 1 tablet (5mg) at 5pm on Sunday,Sunday, and Sunday Narrative Medication List of his home medications reviewed from the nursing note. Review of Systems Except as stated in HPI: all other systems reviewed are Neg Physical Exam Narrative GENERAL: Awake, alert, no obvious distress SKIN: Focused skin assessment warm/dry. HEAD: Atraumatic. Normocephalic. EYES: Pupils equal and round. No scleral icterus. No injection or drainage. ENT: No nasal bleeding or discharge. Mucous membranes pink and moist. NECK: Trachea midline. No JVD. CARDIOVASCULAR: Regular rate and rhythm. No murmur appreciated. RESPIRATORY: No accessory muscle use. Clear to auscultation. Breath sounds equal bilaterally. GASTROINTESTINAL: Abdomen soft, non-tender, nondistended. Hepatic and splenic margins not palpable. MUSCULOSKELETAL: No obvious deformities. No clubbing. No cyanosis. Bilateral leg edema left more than right. No erythema or open sores. No warmth to touch. NEUROLOGICAL: Awake and alert. No obvious cranial nerve deficits. Motor grossly within normal limits. Normal speech. PSYCHIATRIC: Appropriate mood and affect; insight and judgment normal. Data Data Last Documented VS Vital Signs Date Time Temp Pulse Resp B/P Pulse Ox O2 Delivery O2 Flow Rate FiO2 10/01/16 15:48 56 20 136/71 95 Room Air 10/01/16 13:37 97.4 Orders Electrocardiogram (10/01/16 13:53) Basic Metabolic Panel (Bmp) (10/01/16 13:53) B-Type Natriuretic Peptide (10/01/16 13:53) Complete Blood Count With Diff (10/01/16 13:53) Magnesium (Mg) (10/01/16 13:53) Prothrombin Time / Inr (Pt) (10/01/16 13:53) Troponin I (10/01/16 13:53) Chest, Single Ap (10/01/16 13:53) Ecg Monitoring (10/01/16 13:53) Bilateral Bp Monitoring (10/01/16 13:53) Iv Access Insert/Monitor (10/01/16 13:53) Oximetry (10/01/16 13:53) Oxygen Administration (10/01/16 13:53) Sodium Chloride 0.9% Flush (Ns Flush) (10/01/16 14:00) Us Leg Venous Doppler Bilat (10/01/16 ) Labs Laboratory Tests Test 10/01/16 14:10 White Blood Count 5.9 TH/MM3 Red Blood Count 4.16 MIL/MM3 Hemoglobin 9.8 GM/DL Hematocrit 32.2 % Mean Corpuscular Volume 77.3 FL Mean Corpuscular Hemoglobin 23.5 PG Mean Corpuscular Hemoglobin 30.4 % Concent Red Cell Distribution Width 18.2 % Platelet Count 183 TH/MM3 Mean Platelet Volume 8.4 FL Neutrophils (%) (Auto) 62.3 % Lymphocytes (%) (Auto) 17.0 % Monocytes (%) (Auto) 10.0 % Eosinophils (%) (Auto) 8.3 % Basophils (%) (Auto) 2.4 % Neutrophils # (Auto) 3.7 TH/MM3 Lymphocytes # (Auto) 1.0 TH/MM3 Monocytes # (Auto) 0.6 TH/MM3 Eosinophils # (Auto) 0.5 TH/MM3 Basophils # (Auto) 0.1 TH/MM3 CBC Comment DIFF FINAL Differential Comment Prothrombin Time 34.8 SEC Prothromb Time International 3.0 RATIO Ratio Sodium Level 138 MEQ/L Potassium Level 4.1 MEQ/L Chloride Level 104 MEQ/L Carbon Dioxide Level 24.8 MEQ/L Anion Gap 9 MEQ/L Blood Urea Nitrogen 40 MG/DL Creatinine 1.47 MG/DL Estimat Glomerular Filtration 47 ML/MIN Rate Random Glucose 95 MG/DL Calcium Level 9.1 MG/DL Magnesium Level 2.0 MG/DL Troponin I LESS THAN 0.02 NG/ML B-Type Natriuretic Peptide 232 PG/ML [facility] Medical Decision Making Medical Screen Exam Complete: Yes Emergency Medical Condition: Yes Medical Record Reviewed: Yes Interpretation(s) Twelve-lead EKG was reviewed by me. Atrial fibrillation, normal axis, bradycardia. Heart rate of 58 bpm. Differential Diagnosis CHF, dependent edema, DVT Narrative Course 3:44 PM blood test results of back and within acceptable limits. Patient's INR is 3. I will ask him to hold tonight's Coumadin dose. Ultrasound showed bilateral Roth cysts but otherwise no DVT. Patient will be discharged home. 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 Continue taking all your medications like is supposed to except for your warfarin which she needed to skip the next dose. Wear compression stockings and keep the leg elevated above the heart level. Follow-up with your primary care in couple days and get a repeat INR checked. Disposition: 01 DISCHARGE HOME Condition: Stable Sigifredo Orozco MD Oct 01, 2016 13:48
[2016-10-01 13:58] VITALS: RESP 18; O2SAT 95
[2016-10-01] MEDS ORDERED: SODIUM CHLORIDE 0.9% FLUSH 10 ML FLUSH IVF PRN (14:00)
--- NOTE | 2016-10-01 14:15 | RADRPT ---
EXAM DATE/TIME: 10/01/2016 13:50 [facility] COMPARISON: CHEST SINGLE AP, August 26, 2016, 15:55. INDICATIONS : Shortness of breath. MEDICAL HISTORY : Hypercholesterolemia. Carcinoma, basal cell. Gastroesophageal reflux disease. HTN. Afib. Gout. Diabet es. SURGICAL HISTORY : CABG. ENCOUNTER: Initial ACUITY: 1 day PAIN SCORE: 0/10 LOCATION: Bilateral chest FINDINGS: Postsurgical features of prior cardiac surgery. Cardiac silhouette is enlarged. No significant focal pleural or parenchymal opacities. Pulmonary vascularity is within normal limits. Remainder of the exa m is unchanged. CONCLUSION: 1. Postsurgical features with stable cardiomegaly. 2. No acute abnormality. Dennis Dobbins MD on October 01, 2016 at 14:12 Board Certified Radiologist. This report was verified electronically.
[2016-10-01 14:22] LABS: AUTOMATED NEUTROPHIL # 3.7 TH/MM3 (1.8-7.7); BASOPHIL # 0.1 TH/MM3 (0-0.2); BASOPHIL % 2.4 % (0.0-2.0); EOSINOPHIL # 0.5 TH/MM3 (0-0.4); EOSINOPHIL % 8.3 % (0.0-4.0); HEMATOCRIT 32.2 % (39.0-51.0); HEMO FLAGS DIFF FINAL; MEAN CELL VOLUME 77.3 FL (80.0-100.0); MEAN CORPUSCULAR HEMOGLOBIN 23.5 PG (27.0-34.0); MEAN CORPUSCULAR HGB CONC 30.4 % (32.0-36.0); NEUT % 62.3 % (16.0-70.0); PLATELET COUNT 183 TH/MM3 (150-450); RED BLOOD COUNT 4.16 MIL/MM3 (4.50-5.90); RED CELL DISTRIBUTION WIDTH 18.2 % (11.6-17.2); WHITE BLOOD COUNT 5.9 TH/MM3 (4.0-11.0)
[2016-10-01] MEDS ORDERED: ASPI-110 PO (14:28)
[2016-10-01] MEDS ORDERED: MONT10TA4 PO (14:28)
[2016-10-01] MEDS ORDERED: CEFU1TAB20 PO (14:28)
[2016-10-01] MEDS ORDERED: COEN400C PO (14:28)
[2016-10-01 14:29] LABS: PROTHROMBIN TIME - PATIENT 34.8 SEC (9.8-11.6)
[2016-10-01 14:45] LABS: ANION GAP 9 MEQ/L (5-15); BICARBONATE 24.8 MEQ/L (21.0-32.0); BLOOD UREA NITROGEN 40 MG/DL (7-18); CHLORIDE 104 MEQ/L (98-107); GLOMERULAR FILTRATION RATE 47 ML/MIN (>89); POTASSIUM 4.1 MEQ/L (3.5-5.1); SODIUM (NA) 138 MEQ/L (136-145)
--- NOTE | 2016-10-01 15:33 | RADRPT ---
EXAM DATE/TIME: 10/01/2016 14:24 [facility] COMPARISON: No previous studies available for comparison. INDICATIONS : Bilateral leg swelling. MEDICAL HISTORY : Hypercholesterolemia. Hypertension. Gastroesophageal reflux disease. Congestive heart failure. Wilson ry artery disease. Anticoagulant therapy. Afib. Gout. Diabetes. Skin cancer. SURGICAL HISTORY : CABG Skin cancer removal. ENCOUNTER: Initial ACUITY: 1 day PAIN SCORE: 1/10 LOCATION: Bilateral legs. TECHNIQUE: Venous ultrasound of the left and right leg was performed from the inguinal ligament to the proximal calf. Real-time, color Doppler and spectral tracing, compression and augmentation techniques were us ed. FINDINGS: RIGHT LEG: There is normal compressibility of the deep venous system from the inguinal region to the proximal ca lf. No echogenic clot is seen in the lumen of the common femoral, femoral, popliteal, and posterior tibial veins. There is a normal response of the venous system to proximal and distal augmentation an d respiration. Incidental note is made of anechoic avascular popliteal fossa cystic structure measur ing 4.8 x 2.7 x 1.2 cm. LEFT LEG: There is normal compressibility of the deep venous system from the inguinal region to the proximal ca lf. No echogenic clot is seen in the lumen of the common femoral, femoral, popliteal, and posterior tibial veins. There is a normal response of the venous system to proximal and distal augmentation an d respiration. Incidental note is made of anechoic avascular popliteal fossa cystic structure measur ing 4.8 x 3.7 x 1.67 m. CONCLUSION: 1. No sonographic evidence for lower extremity DVT. 2. Bilateral Roth's cysts, as above. Dennis Dobbins MD on October 01, 2016 at 15:29 Board Certified Radiologist. This report was verified electronically.
[2016-10-01 15:48] VITALS: BP 136/71; PULSE 56; RESP 20; O2SAT 95
--- NOTE | 2016-10-02 14:51 | EKG ---
Date Performed: 10/01/2016 Time Performed: 14:26:37 PTAGE: 76 years EKG: ATRIAL FIBRILLATION WITH SLOW VENTRICULAR RESPONSE PROLONGED QT INTERVAL ABNORMAL ECG Since prior tracing, ventricular response atrial fibrillation is slightly slower. QT interval slightly mae ofelia. PREVIOUS TRACING : 08/26/2016 18.41 DOCTOR: Rei Higgins Interpretating Date/Time 10/02/2016 14:50:15
== END 2016-10-01 16:29 | disposition home or self-care (01) ==
LOC: NEPE 13:36
DX: M71.22 Synovial cyst of popliteal space [Baker], left knee (principal); M71.21 Synovial cyst of popliteal space [Baker], right knee; I48.91 Unspecified atrial fibrillation; R00.1 Bradycardia, unspecified; I50.9 Heart failure, unspecified; E11.9 Type 2 diabetes mellitus without complications; I10 Essential (primary) hypertension; M10.9 Gout, unspecified; R60.0 Localized edema
CPT/HCPCS: 71010; 80048; 83735; 83880; 84484; 85025; 85610; 93005; 93970; 99285